=== PATIENT | female | born 1955 | race African-American/Black ===

== ENCOUNTER 2017-01-20 10:11 | Emergency (ER) | payer MEDICAID ==
[~2017-01-20] VITALS: Ht 170.2 cm; Wt 103.0 kg
[~2017-01-20 10:11] MED LIST: ATENOLOL; DOXA4TAB3 PO; FURO40TA5 PO; HYDR25TA PO; LOSA100T14 PO; METF500T4 PO; POTA8TAB4 PO; SIMV40TA5 PO
[2017-01-20 10:46] LABS: BASOPHILS % 0.9 % (0.0-2.0); EOSINOPHILS % 4.2 % (0.0-5.0); HEMATOCRIT. 30.8 % (36.0-48.0); HEMOGLOBIN. 9.8 g/dL (12.0-16.0); LYMPHOCYTES % 19.5 % (20.0-50.0); MEAN CORPUSCULAR HEMOGLOBIN 22.3 pg (28.0-32.0); MEAN CORPUSCULAR VOLUME 70.5 fL (81.0-99.0); MEAN PLATELET VOLUME 8.1 fl (7.4-10.4); MONOCYTES % 6.8 % (2.0-8.0); NEUTROPHILS % 68.6 % (40.0-76.0); PLATELET 250 x1000/uL (130-400); RED BLOOD CELL COUNT 4.37 mill/uL (4.2-5.4); RED CELL DISTRIBUTION WIDTH 14.3 % (11.6-14.6)
[2017-01-20 10:47] VITALS: BP 119/74
[2017-01-20 10:54] LABS: CHLORIDE 97 mEq/L (98-107); INR 1.1; PROTHROMBIN TIME 11.1 sec
[2017-01-20 11:03] LABS: CARBON DIOXIDE 31 mEq/L (21-32)
== END 2017-01-20 12:38 | disposition home or self-care (01) ==
LOC: ER 10:36
DX: R60.0 Localized edema (principal); I11.0 Hypertensive heart disease with heart failure; I50.9 Heart failure, unspecified; E78.00 Pure hypercholesterolemia, unspecified; E11.9 Type 2 diabetes mellitus without complications
CPT/HCPCS: 36415; 71010; 80053; 83880; 85025; 85610; 93005; 93970; 99285; Z7610

== ENCOUNTER 2018-08-01 11:27 | Emergency (ER) | payer MEDICAID ==
[~2018-08-01] VITALS: Ht 170.2 cm; Wt 100.0 kg
[~2018-08-01 11:27] MED LIST changes: +ALBU6.7H INH; +ATEN50TA PO; -ATENOLOL; +FLUT1DIS3 IH; +METF-414 PO; -METF500T4 PO; +P50 PO
[2018-08-01 11:28] VITALS: BP 136/75
== END 2018-08-01 15:30 | disposition left against medical advice (07) ==
LOC: ER 11:27
DX: R68.89 Other general symptoms and signs (principal); Z53.21 Procedure and treatment not carried out due to patient leaving prior to being seen by health care provider

== ENCOUNTER 2019-06-11 23:59 | Emergency (ER) | payer MEDICAID ==
[~2019-06-11] VITALS: Ht 167.6 cm; Wt 112.0 kg
[~2019-06-11 23:59] MED LIST changes: -LOSA100T14 PO; +LOSA100T32 PO
[2019-06-12] MEDS ORDERED: ONDANSETRON 4MG ODT PO STA (00:31)
[2019-06-12] MEDS ORDERED: KETOROLAC 60MG/2ML VIAL IM STA (00:31)
[2019-06-12 00:50] LABS: BASOPHILS % 0.7 % (0.0-2.0); EOSINOPHILS % 0.5 % (0.0-5.0); HEMATOCRIT. 35.4 % (36.0-48.0); HEMOGLOBIN. 10.7 g/dL (12.0-16.0); LYMPHOCYTES % 8.4 % (20.0-50.0); MEAN CORPUSCULAR HEMOGLOBIN 22.1 pg (28.0-32.0); MEAN CORPUSCULAR VOLUME 72.9 fL (81.0-99.0); MEAN PLATELET VOLUME 8.4 fl (7.4-10.4); MONOCYTES % 3.1 % (2.0-8.0); NEUTROPHILS % 87.3 % (40.0-76.0); PLATELET 288 x1000/uL (130-400); RED BLOOD CELL COUNT 4.85 mill/uL (4.2-5.4); RED CELL DISTRIBUTION WIDTH 14.4 % (11.6-14.6)
[2019-06-12 00:55] LABS: CHLORIDE 100 mEq/L (98-107)
[2019-06-12 00:59] LABS: ETHANOL BLOOD < 10 mg/dL
[2019-06-12 03:31] LABS: CLARITY URINE CLEAR (CLEAR); COLOR URINE DARK YELLOW (YELLOW); KETONES URINE NEGATIVE (NEGATIVE); LEUKOCYTE ESTERASE URINE 1+ (NEGATIVE); NITRITE URINE NEGATIVE (NEGATIVE); OCCULT BLOOD URINE TRACE (NEGATIVE); PH URINE 6.5 (4.5-8.0); PROTEIN URINE 1+ (NEGATIVE); SPECIFIC GRAVITY URINE 1.033 (1.005-1.030)
[2019-06-12 03:38] LABS: *AMPHETAMINES SCREEN URINE NEGATIVE (NEGATIVE); *BARBITURATES SCREEN URINE NEGATIVE (NEGATIVE); *BENZODIAZEPINES SCREEN URINE NEGATIVE (NEGATIVE); *COCAINE SCREEN URINE PRESUMTIVE POSITIVE (NEGATIVE); METHADONE URINE SCREEN NEGATIVE (NEGATIVE)
[2019-06-12 03:39] LABS: CANNABINOID URINE SCREEN NEGATIVE (NEGATIVE); OPIATES URINE SCREEN NEGATIVE (NEGATIVE); PHENCYCLIDINE URINE SCREEN NEGATIVE (NEGATIVE)
[2019-06-12 05:05] VITALS: BP 135/77
== END 2019-06-12 05:05 | disposition home or self-care (01) ==
LOC: ER 23:59
DX: R11.2 Nausea with vomiting, unspecified (principal); F14.10 Cocaine abuse, uncomplicated; E11.9 Type 2 diabetes mellitus without complications; I10 Essential (primary) hypertension; Z87.891 Personal history of nicotine dependence; Z79.899 Other long term (current) drug therapy
CPT/HCPCS: 36415; 80053; 80305; 80320; 81003; 83690; 85025; 96372; 99283; J1885; Q0162; G0480

== ENCOUNTER 2019-07-01 01:58 | Inpatient (IN) | payer MEDICAID ==
[~2019-07-01] VITALS: Ht 170.2 cm; Wt 102.1 kg
[~2019-07-01 01:58] MED LIST changes: -ALBU6.7H INH; +ALBU6.7H11 INH; +SIMV-46 PO; -SIMV40TA5 PO
[2019-07-01] MEDS ORDERED: ONDANSETRON HCL 4MG/2ML INJ IV STA (02:04)
[2019-07-01] MEDS ORDERED: ALBUTEROL (0.083%) 2.5MG/3ML NEB HHN STA (02:04)
[2019-07-01] MEDS ORDERED: IPRATROPIUM BROMIDE (0.02%) 0.5MG/2.5ML NEB HHN STA (02:04)
[2019-07-01 02:58] LABS: BG BASE EXCESS 2.5 mmol/L (-2.0-2.0); BG BILEVEL POS AIRWAY PRESSURE 15/5; BG CARBOXYHEMOGLOBIN 0.5 % (0.5-1.5); BG DEOXYHEMOGLOBIN 1.3 % (0.0-5.0); BG FRACTION INSPIRED OXYGEN 50; BG HCO3 ACT 26.6 mmol/L (22.0-26.0); BG METHEMOGLOBIN 0.3 % (0.0-1.5); BG OXYGEN SATURATION 98.7 % (92.0-98.5); BG OXYHEMOGLOBIN 97.9 % (94.0-97.0); BG PCO2 39.1 mmHg (35.0-45.0); BG PO2 139.5 mmHg (75.0-100.0); BG SAMPLE SITE RIGHT RADIAL; BG TOTAL HEMOGLOBIN 11.4 g/dL (12.0-18.0); BG VENT MODE MASK - BIPAP
[2019-07-01 03:28] LABS: BASOPHILS % 0.5 % (0.0-2.0); HEMATOCRIT. 36.1 % (36.0-48.0); HEMOGLOBIN. 11.1 g/dL (12.0-16.0); LYMPHOCYTES % 11.6 % (20.0-50.0); MEAN CORPUSCULAR VOLUME 71.4 fL (81.0-99.0); MEAN PLATELET VOLUME 9.1 fl (7.4-10.4); MONOCYTES % 7.1 % (2.0-8.0); NEUTROPHILS % 80.8 % (40.0-76.0); PLATELET 223 x1000/uL (130-400); RED BLOOD CELL COUNT 5.06 mill/uL (4.2-5.4); RED CELL DISTRIBUTION WIDTH 14.2 % (11.6-14.6)
[2019-07-01 03:49] LABS: CHLORIDE 102 mEq/L (98-107)
[2019-07-01] MEDS ORDERED: HYDROCODONE/ACETAMINOPHEN 5/325MG TABLET PO ONE (04:45)
[2019-07-01] MEDS ORDERED: ONDANSETRON HCL 4MG/2ML INJ IV PRN (08:15)
[2019-07-01] MEDS ORDERED: BENZONATATE 100MG CAPSULE PO PRN (08:15)
[2019-07-01] MEDS ORDERED: IPRATROPIUM/ALBUTEROL 0.5-3(2.5)MG/3ML NEB HHN PRN (08:15)
[2019-07-01] MEDS ORDERED: ACETAMINOPHEN 325MG TABLET PO PRN (08:15)
[2019-07-01] MEDS: OSELTAMIVIR 75MG CAPSULE PO SCH ×2 (09:10→21:31)
[2019-07-01] MEDS: IPRATROPIUM/ALBUTEROL 0.5-3(2.5)MG/3ML NEB HHN SCH ×3 (11:56→20:41)
[2019-07-01] MEDS: BUDESONIDE 0.5MG/2ML NEB HHN SCH ×2 (11:56→20:41)
[2019-07-01 15:23] VITALS: BP 114/60
[2019-07-01 15:25] VITALS: BP 114/60
[2019-07-01 16:00] VITALS: BP 110/50
[2019-07-01 20:00] VITALS: BP 100/48
[2019-07-01] MEDS: GUAIFENESIN 600MG ER TABLET PO SCH (21:31)
[2019-07-02] VITALS: BP 93/52
[2019-07-02] MEDS: IPRATROPIUM/ALBUTEROL 0.5-3(2.5)MG/3ML NEB HHN SCH ×4 (00:42→16:00)
[2019-07-02 04:00] VITALS: BP 102/54
[2019-07-02 04:55] LABS: CLARITY URINE CLEAR (CLEAR); COLOR URINE YELLOW (YELLOW); KETONES URINE NEGATIVE (NEGATIVE); LEUKOCYTE ESTERASE URINE 1+ (NEGATIVE); NITRITE URINE NEGATIVE (NEGATIVE); OCCULT BLOOD URINE NEGATIVE (NEGATIVE); PROTEIN URINE 1+ (NEGATIVE); SPECIFIC GRAVITY URINE 1.018 (1.005-1.030); UROBILINOGEN URINE 0.2 E.U./dL (0.2-1.0)
[2019-07-02 05:18] LABS: *AMPHETAMINES SCREEN URINE NEGATIVE (NEGATIVE); *BARBITURATES SCREEN URINE NEGATIVE (NEGATIVE); *BENZODIAZEPINES SCREEN URINE NEGATIVE (NEGATIVE)
[2019-07-02 05:19] LABS: *COCAINE SCREEN URINE PRESUMTIVE POSITIVE (NEGATIVE); CANNABINOID URINE SCREEN NEGATIVE (NEGATIVE); METHADONE URINE SCREEN NEGATIVE (NEGATIVE); OPIATES URINE SCREEN NEGATIVE (NEGATIVE); PHENCYCLIDINE URINE SCREEN NEGATIVE (NEGATIVE)
[2019-07-02 07:25] LABS: BASOPHILS % 0.3 % (0.0-2.0); HEMATOCRIT. 28.7 % (36.0-48.0); HEMOGLOBIN. 8.9 g/dL (12.0-16.0); LYMPHOCYTES % 17.3 % (20.0-50.0); MEAN CORPUSCULAR HEMOGLOBIN 22.3 pg (28.0-32.0); MEAN CORPUSCULAR VOLUME 71.8 fL (81.0-99.0); MEAN PLATELET VOLUME 8.9 fl (7.4-10.4); MONOCYTES % 12.5 % (2.0-8.0); NEUTROPHILS % 69.9 % (40.0-76.0); PLATELET 171 x1000/uL (130-400); RED CELL DISTRIBUTION WIDTH 14.1 % (11.6-14.6)
[2019-07-02 07:35] LABS: CHLORIDE 102 mEq/L (98-107)
[2019-07-02 08:00] VITALS: BP 110/61
[2019-07-02] MEDS: GUAIFENESIN 600MG ER TABLET PO SCH (10:08)
[2019-07-02] MEDS: OSELTAMIVIR 75MG CAPSULE PO SCH (10:08)
[2019-07-02 12:00] VITALS: BP 121/60
[2019-07-02] MEDS ORDERED: POTASSIUM CHLORIDE 20MEQ TABLET SR PO SCH (13:15)
[2019-07-02] MEDS ORDERED: ALBU18HF2 IH (13:41)
[2019-07-02] MEDS ORDERED: BENZ-16 MT (13:41)
[2019-07-02] MEDS ORDERED: FLUT1DIS3 INH (13:41)
[2019-07-02] MEDS ORDERED: GUAI600T26 MT (13:41)
[2019-07-02] MEDS ORDERED: TAM75 MT (13:41)
[2019-07-02] MEDS: BUDESONIDE 0.5MG/2ML NEB HHN SCH (14:25)
[2019-07-02 14:31] LABS: BG BASE EXCESS 6.9 mmol/L (-2.0-2.0); BG CARBOXYHEMOGLOBIN 0.7 % (0.5-1.5); BG DEOXYHEMOGLOBIN 23.1 % (0.0-5.0); BG FRACTION INSPIRED OXYGEN 21; BG HCO3 ACT 32.4 mmol/L (22.0-26.0); BG METHEMOGLOBIN 0.1 % (0.0-1.5); BG OXYGEN SATURATION 76.7 % (92.0-98.5); BG OXYHEMOGLOBIN 76.1 % (94.0-97.0); BG PCO2 50.6 mmHg (35.0-45.0); BG PH 7.424 (7.350-7.450); BG PO2 39.8 mmHg (75.0-100.0); BG SAMPLE SITE RIGHT BRACHIAL; BG TOTAL HEMOGLOBIN 10.4 g/dL (12.0-18.0); BG VENT MODE ROOM AIR
[2019-07-02 16:00] VITALS: BP 105/53
[2019-07-02 18:59] VITALS: BP 105/53
== END 2019-07-02 20:30 | disposition home or self-care (01) | DRG 720 ==
LOC: ER 01:58 → 7WST 04:49 → ENRESERV 12:22
PROVIDERS: ADMIT Internal Medicine; ATTEND Internal Medicine
PROC: 5A09357 Assistance with Respiratory Ventilation, Less than 24 Consecutive Hours, Continuous Positive Airway Pressure (ICD-10-PCS; principal; 2019-07-01)
DX: A41.89 Other specified sepsis (principal); J96.00 Acute respiratory failure, unspecified whether with hypoxia or hypercapnia; J44.1 Chronic obstructive pulmonary disease with (acute) exacerbation; J10.1 Influenza due to other identified influenza virus with other respiratory manifestations; E44.1 Mild protein-calorie malnutrition; E11.9 Type 2 diabetes mellitus without complications; I50.9 Heart failure, unspecified; I11.0 Hypertensive heart disease with heart failure; F14.90 Cocaine use, unspecified, uncomplicated; Z87.891 Personal history of nicotine dependence; Z79.899 Other long term (current) drug therapy; Z71.51 Drug abuse counseling and surveillance of drug abuser; Z68.35 Body mass index [BMI] 35.0-35.9, adult
CPT/HCPCS: 36415; 36600; 71045; 80048; 80053; 80305; 81003; 82375; 82805; 83880; 84484; 85025; 87070; 87430; 87804; 93005; 94640; 97162; 99291; J7611; J7620; J7626

== ENCOUNTER 2020-02-22 00:42 | Emergency (ER) | payer MEDICARE, MEDICAID ==
[~2020-02-22] VITALS: Ht 170.2 cm; Wt 114.0 kg
[~2020-02-22 00:42] MED LIST changes: +ALBU18HF2 IH; -ATEN50TA PO; +BENZ-16 MT; +FLUT1DIS3 INH; -FURO40TA5 PO; +GUAI600T26 MT; -HYDR25TA PO; -LOSA100T32 PO; -METF-414 PO; -P50 PO; -POTA8TAB4 PO; +TAM75 MT
[2020-02-22 03:20] LABS: BASOPHILS % 0.8 % (0.0-2.0); EOSINOPHILS % 1.9 % (0.0-5.0); HEMATOCRIT. 30.9 % (36.0-48.0); HEMOGLOBIN. 9.6 g/dL (12.0-16.0); LYMPHOCYTES % 9.4 % (20.0-50.0); MEAN CORPUSCULAR HEMOGLOBIN 22.1 pg (28.0-32.0); MEAN CORPUSCULAR VOLUME 71.4 fL (81.0-99.0); MEAN PLATELET VOLUME 8.1 fl (7.4-10.4); NEUTROPHILS % 83.9 % (40.0-76.0); PLATELET 325 x1000/uL (130-400); RED BLOOD CELL COUNT 4.33 mill/uL (4.2-5.4); RED CELL DISTRIBUTION WIDTH 15.4 % (11.6-14.6)
[2020-02-22 03:25] LABS: CHLORIDE 104 mEq/L (98-107)
[2020-02-22 06:04] VITALS: BP 114/67
== END 2020-02-22 06:10 | disposition home or self-care (01) ==
LOC: ER 00:42
DX: I11.0 Hypertensive heart disease with heart failure (principal); I50.9 Heart failure, unspecified; E78.00 Pure hypercholesterolemia, unspecified; E11.9 Type 2 diabetes mellitus without complications; Z79.899 Other long term (current) drug therapy
CPT/HCPCS: 36415; 71045; 80053; 83880; 84484; 85025; 93005; 99285

== ENCOUNTER 2020-05-04 04:11 | Inpatient (IN) | payer MEDICARE, MEDICAID ==
[~2020-05-04] VITALS: Ht 170.2 cm; Wt 93.9 kg
[2020-05-04] MEDS ORDERED: DIPHENHYDRAMINE 50MG CAPSULE PO ONE (04:30)
[2020-05-04 04:54] LABS: BASOPHILS % 1.4 % (0.0-2.0); EOSINOPHILS % 5.7 % (0.0-5.0); HEMATOCRIT. 28.3 % (36.0-48.0); HEMOGLOBIN. 8.6 g/dL (12.0-16.0); LYMPHOCYTES % 15.5 % (20.0-50.0); MEAN CORPUSCULAR HEMOGLOBIN 22.7 pg (28.0-32.0); MEAN CORPUSCULAR VOLUME 74.3 fL (81.0-99.0); MEAN PLATELET VOLUME 7.7 fl (7.4-10.4); MONOCYTES % 8.3 % (2.0-8.0); NEUTROPHILS % 69.1 % (40.0-76.0); PLATELET 479 x1000/uL (130-400); RED BLOOD CELL COUNT 3.81 mill/uL (4.2-5.4); RED CELL DISTRIBUTION WIDTH 18.9 % (11.6-14.6)
[2020-05-04 05:02] LABS: CHLORIDE 102 mEq/L (98-107)
[2020-05-04] MEDS ORDERED: ASPIRIN 81MG TABLET PO ONE (05:45)
[2020-05-04] MEDS ORDERED: FUROSEMIDE 40MG/4ML VIAL IV ONE (05:45)
[2020-05-04] MEDS ORDERED: ALBUTEROL (0.083%) 2.5MG/3ML NEB HHN STA (05:58)
[2020-05-04] MEDS ORDERED: METHYLPREDNISOLONE SOD SUCC 125 MG/2 ML VIAL IV STA (05:58)
[2020-05-04 08:21] VITALS: BP 140/78
[2020-05-04] MEDS ORDERED: ENOXAPARIN 40MG/0.4ML SYR SUBCUT SCH (09:45)
[2020-05-04] MEDS ORDERED: ONDANSETRON HCL 4MG/2ML INJ IV PRN (09:45)
[2020-05-04] MEDS ORDERED: IPRATROPIUM/ALBUTEROL 0.5-3(2.5)MG/3ML NEB HHN PRN (09:45)
[2020-05-04] MEDS ORDERED: ASPIRIN 325MG EC TABLET PO SCH (09:45)
[2020-05-04] MEDS ORDERED: DEXTROSE 50% WATER 50ML SYRINGE IV PRN (09:45)
[2020-05-04] MEDS ORDERED: POTASSIUM CHLORIDE 20MEQ/PACKET PO SCH (10:00)
[2020-05-04] MEDS: CARVEDILOL 3.125 MG TABLET PO SCH ×2 (11:04→20:27)
[2020-05-04] MEDS: ENOXAPARIN 30MG/0.3ML SYR SUBCUT SCH ×2 (11:04→20:27)
[2020-05-04] MEDS: LISINOPRIL 20MG TABLET PO SCH (11:04)
[2020-05-04 12:00] VITALS: BP 117/47
[2020-05-04] MEDS: BLOOD SUGAR DIAGNOSTIC STRIP TEST SCH ×3 (12:10→20:28)
[2020-05-04] MEDS: INSULIN LISPRO 100 UNITS/ML SUBCUT SCH ×3 (12:40→21:14)
[2020-05-04 16:00] VITALS: BP 100/50
[2020-05-04 17:04] LABS: TOTAL IRON BINDING CAPACITY 223 ug/dL (250-450)
[2020-05-04] MEDS: FUROSEMIDE 40MG/4ML VIAL IVP SCH (18:00)
[2020-05-04 20:00] VITALS: BP 125/72
[2020-05-04] MEDS: ATORVASTATIN CALCIUM 40MG TABLET PO SCH (20:27)
[2020-05-04] MEDS: FAMOTIDINE 20MG TABLET PO SCH (20:27)
[2020-05-04] MEDS: TRAMADOL 50MG TABLET PO PRN (20:28)
[2020-05-04] MEDS: DIPHENHYDRAMINE 50MG CAPSULE PO PRN (21:50)
[2020-05-05] VITALS: BP 113/66
[2020-05-05 04:00] VITALS: BP 108/60
[2020-05-05] MEDS: FUROSEMIDE 40MG/4ML VIAL IVP SCH ×2 (05:21→20:51)
[2020-05-05] MEDS: BLOOD SUGAR DIAGNOSTIC STRIP TEST SCH ×4 (05:26→21:05)
[2020-05-05] MEDS: INSULIN LISPRO 100 UNITS/ML SUBCUT SCH ×4 (05:46→21:00)
[2020-05-05 06:35] LABS: BASOPHILS % 0.3 % (0.0-2.0); EOSINOPHILS % 0.1 % (0.0-5.0); HEMOGLOBIN. 7.3 g/dL (12.0-16.0); LYMPHOCYTES % 7.6 % (20.0-50.0); MEAN CORPUSCULAR HEMOGLOBIN 22.2 pg (28.0-32.0); MEAN CORPUSCULAR VOLUME 75.8 fL (81.0-99.0); MONOCYTES % 5.3 % (2.0-8.0); NEUTROPHILS % 86.7 % (40.0-76.0); RED CELL DISTRIBUTION WIDTH 18.4 % (11.6-14.6)
[2020-05-05 07:45] LABS: CHLORIDE 102 mEq/L (98-107)
[2020-05-05 07:59] LABS: PLATELET 392 x1000/uL (130-400)
[2020-05-05 08:00] VITALS: BP 110/57
[2020-05-05] MEDS: CARVEDILOL 3.125 MG TABLET PO SCH ×2 (09:00→20:53)
[2020-05-05] MEDS: LISINOPRIL 20MG TABLET PO SCH (09:00)
[2020-05-05] MEDS: ENOXAPARIN 30MG/0.3ML SYR SUBCUT SCH (09:00)
[2020-05-05 10:16] LABS: PLATELET ESTIMATE NORMAL
[2020-05-05] MEDS: DOCUSATE SODIUM 100MG CAPSULE PO SCH ×2 (11:20→19:06)
[2020-05-05 12:00] VITALS: BP 107/56
[2020-05-05] MEDS ORDERED: FERROUS SULFATE 325MG TABLET PO SCH (12:40)
[2020-05-05] MEDS: DIPHENHYDRAMINE 50MG CAPSULE PO PRN ×2 (13:45→20:52)
[2020-05-05] MEDS ORDERED: MAGNESIUM CITRATE 300ML SOLUTION PO SCH ×2 (15:00)
[2020-05-05 20:00] VITALS: BP 106/61
[2020-05-05] MEDS: IRON SUCROSE COMPLEX 100 MG/5 ML ML IV SCH (20:52)
[2020-05-05] MEDS: ATORVASTATIN CALCIUM 40MG TABLET PO SCH (20:52)
[2020-05-05] MEDS: FAMOTIDINE 20MG TABLET PO SCH (20:53)
[2020-05-06] VITALS (8 sets, daily range): BP systolic 97–122; BP diastolic 51–74
[2020-05-06] MEDS ORDERED: ZOLPIDEM TARTRATE 5MG TABLET PO PRN (01:00)
[2020-05-06] MEDS: BLOOD SUGAR DIAGNOSTIC STRIP TEST SCH ×4 (06:56→21:26)
[2020-05-06] MEDS: INSULIN LISPRO 100 UNITS/ML SUBCUT SCH ×4 (06:56→21:00)
[2020-05-06] MEDS: FUROSEMIDE 40MG/4ML VIAL IVP SCH ×2 (06:57→17:07)
[2020-05-06 08:34] LABS: BASOPHILS % 0.6 % (0.0-2.0); EOSINOPHILS % 6.2 % (0.0-5.0); HEMOGLOBIN. 7.4 g/dL (12.0-16.0); LYMPHOCYTES % 18.2 % (20.0-50.0); MEAN CORPUSCULAR HEMOGLOBIN 22.8 pg (28.0-32.0); MEAN CORPUSCULAR VOLUME 73.9 fL (81.0-99.0); MEAN PLATELET VOLUME 8.1 fl (7.4-10.4); MONOCYTES % 6.3 % (2.0-8.0); NEUTROPHILS % 68.7 % (40.0-76.0); PLATELET 417 x1000/uL (130-400); RED BLOOD CELL COUNT 3.25 mill/uL (4.2-5.4); RED CELL DISTRIBUTION WIDTH 17.8 % (11.6-14.6)
[2020-05-06 08:50] LABS: CHLORIDE 99 mEq/L (98-107)
[2020-05-06] MEDS: CARVEDILOL 3.125 MG TABLET PO SCH ×2 (09:00→20:49)
[2020-05-06] MEDS: LISINOPRIL 20MG TABLET PO SCH (09:00)
[2020-05-06] MEDS: IRON SUCROSE COMPLEX 100 MG/5 ML ML IV SCH (09:11)
[2020-05-06] MEDS: DOCUSATE SODIUM 100MG CAPSULE PO SCH ×2 (09:11→17:07)
[2020-05-06 10:38] LABS: CLARITY URINE CLEAR (CLEAR); COLOR URINE YELLOW (YELLOW); KETONES URINE NEGATIVE (NEGATIVE); LEUKOCYTE ESTERASE URINE NEGATIVE (NEGATIVE); NITRITE URINE NEGATIVE (NEGATIVE); OCCULT BLOOD URINE NEGATIVE (NEGATIVE); PH URINE 5.5 (4.5-8.0); PROTEIN URINE NEGATIVE (NEGATIVE); UROBILINOGEN URINE 0.2 E.U./dL (0.2-1.0)
[2020-05-06] MEDS ORDERED: POTASSIUM CHLORIDE 20MEQ TABLET SR PO SCH (13:30)
[2020-05-06] MEDS: ATORVASTATIN CALCIUM 40MG TABLET PO SCH (20:49)
[2020-05-06] MEDS: FAMOTIDINE 20MG TABLET PO SCH (20:49)
[2020-05-06] MEDS: TRAMADOL 50MG TABLET PO PRN (21:20)
[2020-05-06] MEDS: MORPHINE SULFATE 2 MG/ML CPJ (NOT FOR IM USE) IV PRN (22:43)
[2020-05-06] MEDS: DIPHENHYDRAMINE 50MG CAPSULE PO PRN (23:41)
[2020-05-07] VITALS (9 sets, daily range): BP systolic 95–129; BP diastolic 53–78
[2020-05-07] MEDS: FUROSEMIDE 40MG/4ML VIAL IVP SCH ×2 (06:00→18:08)
[2020-05-07] MEDS: BLOOD SUGAR DIAGNOSTIC STRIP TEST SCH ×4 (06:42→21:00)
[2020-05-07] MEDS: INSULIN LISPRO 100 UNITS/ML SUBCUT SCH ×4 (06:43→21:00)
[2020-05-07 07:02] LABS: BASOPHILS % 0.6 % (0.0-2.0); EOSINOPHILS % 8.1 % (0.0-5.0); HEMATOCRIT. 27.7 % (36.0-48.0); HEMOGLOBIN. 8.4 g/dL (12.0-16.0); LYMPHOCYTES % 19.9 % (20.0-50.0); MEAN CORPUSCULAR HEMOGLOBIN 22.7 pg (28.0-32.0); MEAN CORPUSCULAR VOLUME 74.9 fL (81.0-99.0); MEAN PLATELET VOLUME 8.1 fl (7.4-10.4); MONOCYTES % 8.4 % (2.0-8.0); PLATELET 433 x1000/uL (130-400); RED CELL DISTRIBUTION WIDTH 17.8 % (11.6-14.6)
[2020-05-07 07:10] LABS: CHLORIDE 98 mEq/L (98-107)
[2020-05-07] MEDS: DOCUSATE SODIUM 100MG CAPSULE PO SCH ×2 (09:38→18:08)
[2020-05-07] MEDS: IRON SUCROSE COMPLEX 100 MG/5 ML ML IV SCH (09:38)
[2020-05-07] MEDS: CARVEDILOL 3.125 MG TABLET PO SCH ×2 (09:40→20:51)
[2020-05-07] MEDS: LISINOPRIL 20MG TABLET PO SCH (09:42)
[2020-05-07] MEDS: FAMOTIDINE 20MG TABLET PO SCH (20:51)
[2020-05-07] MEDS: ATORVASTATIN CALCIUM 40MG TABLET PO SCH (20:51)
[2020-05-07] MEDS: MORPHINE SULFATE 2 MG/ML CPJ (NOT FOR IM USE) IV PRN (20:53)
[2020-05-08] VITALS: BP 115/60
[2020-05-08] MEDS: DIPHENHYDRAMINE 50MG CAPSULE PO PRN (01:04)
[2020-05-08 04:00] VITALS: BP 104/55
[2020-05-08] MEDS: BLOOD SUGAR DIAGNOSTIC STRIP TEST SCH (06:51)
[2020-05-08] MEDS: FUROSEMIDE 40MG/4ML VIAL IVP SCH (06:51)
[2020-05-08] MEDS: INSULIN LISPRO 100 UNITS/ML SUBCUT SCH (06:51)
[2020-05-08 08:00] VITALS: BP 115/63
[2020-05-08] MEDS ORDERED: CELECOXIB 200MG CAPSULE PO SCH (09:00)
[2020-05-08] MEDS: LISINOPRIL 20MG TABLET PO SCH (10:23)
[2020-05-08] MEDS: CARVEDILOL 3.125 MG TABLET PO SCH (10:23)
[2020-05-08] MEDS: DOCUSATE SODIUM 100MG CAPSULE PO SCH (10:23)
[2020-05-08 10:56] VITALS: BP 115/63
[2020-05-08 12:00] VITALS: BP 141/82
[2020-05-09] MEDS ORDERED: ATEN50TA MT (08:49)
[2020-05-09] MEDS ORDERED: FURO-151 MT (08:49)
[2020-05-09] MEDS ORDERED: POTASSIUM (08:49)
[2020-05-09 15:10] LABS: ANTI-DNA DOUBLE STRANDED QUANT 22 IU/mL (0-9); RNP ANTIBODY 0.2 AI (0.0-0.9); SMITH ANTIBODY < 0.2 AI (0.0-0.9)
[2020-05-10 17:06] LABS: ALDOLASE 1.9 U/L (3.3-10.3); ANGIOTENSION CONVERTING ENZYME 8 U/L (14-82)
[2020-05-10 19:10] LABS: CYC CITRULLINATED PEP IgG/IgA 117 units (0-19)
[2020-05-11 17:10] LABS: ANTI-MYELOPEROXIDASE AB < 9.0 U/mL (0.0-9.0); ANTI-PROTEINASE 3 ABS 4.6 U/mL (0.0-3.5)
[2020-05-12 15:07] LABS: ANA IFA Negative (.); ATYPICAL P-ANCA <1:20 titer (Neg:<1:20); CYTOPLASMIC C-ANCA <1:20 titer (Neg:<1:20); PERINUCLEAR P-ANCA <1:20 titer (Neg:<1:20)
== END 2020-05-08 15:22 | DRG 291 ==
LOC: ER 04:11 → 8WST 06:17 → EDBEDREQTM 06:32 → EDBEDREQ 06:32 → ENRESERV 07:56 → 8WST 09:47
PROVIDERS: ADMIT Internal Medicine; ATTEND Internal Medicine
PROC: 0XJ Anatomical Regions, Upper Extremities, Inspection (ICD-10-PCS; principal; 2020-05-04)
PROC: 3E0U3BZ Introduction of Anesthetic Agent into Joints, Percutaneous Approach (ICD-10-PCS; 2020-05-04)
PROC: 30233N1 Transfusion of Nonautologous Red Blood Cells into Peripheral Vein, Percutaneous Approach (ICD-10-PCS; 2020-05-06)
PROC: 3E0U33Z Introduction of Anti-inflammatory into Joints, Percutaneous Approach (ICD-10-PCS; 2020-05-06)
DX: I11.0 Hypertensive heart disease with heart failure (principal); J96.21 Acute and chronic respiratory failure with hypoxia; E44.0 Moderate protein-calorie malnutrition; J44.1 Chronic obstructive pulmonary disease with (acute) exacerbation; I50.33 Acute on chronic diastolic (congestive) heart failure; E11.9 Type 2 diabetes mellitus without complications; E87.6 Hypokalemia; E78.5 Hyperlipidemia, unspecified; E66.9 Obesity, unspecified; D50.9 Iron deficiency anemia, unspecified; D72.829 Elevated white blood cell count, unspecified; E78.00 Pure hypercholesterolemia, unspecified; M75.52 Bursitis of left shoulder; M19.012 Primary osteoarthritis, left shoulder; X58.XXXA Exposure to other specified factors, initial encounter; M51.36 Other intervertebral disc degeneration, lumbar region; F14.11 Cocaine abuse, in remission; Z96.641 Presence of right artificial hip joint; R53.81 Other malaise; Z96.652 Presence of left artificial knee joint; M75.102 Unspecified rotator cuff tear or rupture of left shoulder, not specified as traumatic; Z99.81 Dependence on supplemental oxygen; Z82.49 Family history of ischemic heart disease and other diseases of the circulatory system; Z83.3 Family history of diabetes mellitus; Z87.891 Personal history of nicotine dependence; Z90.710 Acquired absence of both cervix and uterus; Z68.32 Body mass index [BMI] 32.0-32.9, adult; Z79.899 Other long term (current) drug therapy; Y93.89 Activity, other specified; Y92.89 Other specified places as the place of occurrence of the external cause; Y99.8 Other external cause status
CPT/HCPCS: 36415; 71045; 72141; 73030; 73221; 73502; 80048; 80053; 81003; 82085; 82164; 82270; 82728; 82962; 83036; 83520; 83540; 83550; 83880; 84484; 84550; 85025; 86200; 86225; 86235; 86256; 86431; 86850; 86900; 86920; 93005; 93306; 93970; 94640; 97116; 97162; 97166; 97530; 97535; 99285; C1893; J1650; J1815; J1940; J2270; J2930; P9016; Q0163

== ENCOUNTER 2020-05-08 15:25 | Inpatient (IN) | payer MEDICARE, MEDICAID ==
[~2020-05-08] VITALS: Ht 170.2 cm; Wt 99.8 kg
[2020-05-08 15:30] VITALS: BP 118/55
[2020-05-08] MEDS ORDERED: ENOXAPARIN 30MG/0.3ML SYR SUBCUT SCH (16:00)
[2020-05-08] MEDS ORDERED: DEXTROSE 50% WATER 50ML SYRINGE IV PRN (16:00)
[2020-05-08] MEDS ORDERED: ONDANSETRON HCL 4MG/2ML INJ IV PRN (16:00)
[2020-05-08] MEDS ORDERED: IPRATROPIUM/ALBUTEROL 0.5-3(2.5)MG/3ML NEB HHN PRN (16:00)
[2020-05-08] MEDS ORDERED: MORPHINE SULFATE 2 MG/ML CPJ (NOT FOR IM USE) IV PRN (16:00)
[2020-05-08] MEDS ORDERED: DIPHENHYDRAMINE 50MG CAPSULE PO PRN (16:00)
[2020-05-08] MEDS: INSULIN LISPRO 100 UNITS/ML SUBCUT SCH ×2 (17:00→21:00)
[2020-05-08] MEDS: BLOOD SUGAR DIAGNOSTIC STRIP TEST SCH ×2 (17:27→21:47)
[2020-05-08] MEDS: DOCUSATE SODIUM 100MG CAPSULE PO SCH (17:29)
[2020-05-08] MEDS: FUROSEMIDE 40MG TABLET PO SCH (17:29)
[2020-05-08] MEDS: CELECOXIB 200MG CAPSULE PO SCH (17:30)
[2020-05-08 17:45] VITALS: BP 118/55
[2020-05-08] MEDS ORDERED: FUROSEMIDE 40MG/4ML VIAL IVP SCH (18:00)
[2020-05-08 20:00] VITALS: BP 101/51
[2020-05-08] MEDS: CARVEDILOL 3.125 MG TABLET PO SCH (21:00)
[2020-05-08] MEDS: TRAMADOL 50MG TABLET PO PRN (21:45)
[2020-05-08] MEDS: ATORVASTATIN CALCIUM 40MG TABLET PO SCH (21:46)
[2020-05-08] MEDS: FAMOTIDINE 20MG TABLET PO SCH (21:46)
[2020-05-09] MEDS: FUROSEMIDE 40MG TABLET PO SCH ×2 (06:22→17:11)
[2020-05-09] MEDS: TRAMADOL 50MG TABLET PO PRN ×2 (06:26→20:19)
[2020-05-09] MEDS: BLOOD SUGAR DIAGNOSTIC STRIP TEST SCH (06:26)
[2020-05-09 07:22] LABS: BASOPHILS % 0.9 % (0.0-2.0); EOSINOPHILS % 3.8 % (0.0-5.0); HEMATOCRIT. 26.1 % (36.0-48.0); HEMOGLOBIN. 8.1 g/dL (12.0-16.0); LYMPHOCYTES % 13.3 % (20.0-50.0); MEAN CORPUSCULAR HEMOGLOBIN 23.1 pg (28.0-32.0); MEAN CORPUSCULAR VOLUME 74.7 fL (81.0-99.0); MEAN PLATELET VOLUME 8.1 fl (7.4-10.4); MONOCYTES % 6.4 % (2.0-8.0); NEUTROPHILS % 75.6 % (40.0-76.0); PLATELET 387 x1000/uL (130-400); RED BLOOD CELL COUNT 3.49 mill/uL (4.2-5.4); RED CELL DISTRIBUTION WIDTH 18.4 % (11.6-14.6)
[2020-05-09 07:29] LABS: CHLORIDE 100 mEq/L (98-107)
[2020-05-09 08:02] VITALS: BP 112/61
[2020-05-09] MEDS ORDERED: POTASSIUM (08:49)
[2020-05-09] MEDS ORDERED: ATEN50TA MT (08:49)
[2020-05-09] MEDS ORDERED: FURO-151 MT (08:49)
[2020-05-09] MEDS: INSULIN LISPRO 100 UNITS/ML SUBCUT SCH (09:00)
[2020-05-09] MEDS: DOCUSATE SODIUM 100MG CAPSULE PO SCH ×3 (09:44→17:11)
[2020-05-09] MEDS: CARVEDILOL 3.125 MG TABLET PO SCH ×2 (09:44→20:19)
[2020-05-09] MEDS: CELECOXIB 200MG CAPSULE PO SCH ×2 (09:44→17:11)
[2020-05-09] MEDS: LISINOPRIL 20MG TABLET PO SCH (09:45)
[2020-05-09] MEDS ORDERED: POTASSIUM CHLORIDE 20MEQ TABLET SR PO NR (10:00)
[2020-05-09] MEDS ORDERED: ONDANSETRON HCL 4MG TABLET PO PRN (10:00)
[2020-05-09 20:00] VITALS: BP 135/74
[2020-05-09] MEDS: FAMOTIDINE 20MG TABLET PO SCH (20:18)
[2020-05-09] MEDS: ATORVASTATIN CALCIUM 40MG TABLET PO SCH (20:18)
[2020-05-09 20:29] LABS: CLARITY URINE CLEAR (CLEAR); COLOR URINE YELLOW (YELLOW); KETONES URINE NEGATIVE (NEGATIVE); LEUKOCYTE ESTERASE URINE TRACE (NEGATIVE); NITRITE URINE NEGATIVE (NEGATIVE); OCCULT BLOOD URINE NEGATIVE (NEGATIVE); PH URINE 5.5 (4.5-8.0); PROTEIN URINE NEGATIVE (NEGATIVE); SPECIFIC GRAVITY URINE 1.024 (1.005-1.030)
[2020-05-09] MEDS: ZOLPIDEM TARTRATE 5MG TABLET PO PRN (23:57)
[2020-05-10] MEDS: TRAMADOL 50MG TABLET PO PRN ×2 (02:42→21:13)
[2020-05-10 05:54] LABS: BASOPHILS % 0.7 % (0.0-2.0); EOSINOPHILS % 3.5 % (0.0-5.0); HEMATOCRIT. 26.4 % (36.0-48.0); HEMOGLOBIN. 8.2 g/dL (12.0-16.0); LYMPHOCYTES % 12.7 % (20.0-50.0); MEAN CORPUSCULAR VOLUME 74.3 fL (81.0-99.0); MEAN PLATELET VOLUME 8.2 fl (7.4-10.4); MONOCYTES % 8.3 % (2.0-8.0); NEUTROPHILS % 74.8 % (40.0-76.0); PLATELET 379 x1000/uL (130-400); RED BLOOD CELL COUNT 3.56 mill/uL (4.2-5.4); RED CELL DISTRIBUTION WIDTH 18.5 % (11.6-14.6)
[2020-05-10] MEDS: FUROSEMIDE 40MG TABLET PO SCH ×2 (06:16→16:26)
[2020-05-10 06:32] LABS: FOLIC ACID (FOLATE) SERUM 5.7 ng/mL (>5.38)
[2020-05-10 07:54] LABS: CHLORIDE 98 mEq/L (98-107)
[2020-05-10 08:00] VITALS: BP 125/62
[2020-05-10 08:03] LABS: TOTAL IRON BINDING CAPACITY 244 ug/dL (250-450)
[2020-05-10 08:04] LABS: PHOSPHORUS 3.1 mg/dL (2.5-4.9)
[2020-05-10] MEDS: DOCUSATE SODIUM 100MG CAPSULE PO SCH ×2 (08:21→16:26)
[2020-05-10] MEDS: CELECOXIB 200MG CAPSULE PO SCH ×2 (08:21→16:26)
[2020-05-10 08:30] VITALS: BP_SYST 104; BP_DIAS 4; BP_DIAS 64
[2020-05-10] MEDS: CARVEDILOL 3.125 MG TABLET PO SCH ×3 (08:33→21:14)
[2020-05-10] MEDS: LISINOPRIL 20MG TABLET PO SCH (08:35)
[2020-05-10 10:32] VITALS: BP 121/77
[2020-05-10] MEDS: CYANOCOBALAMIN 1000MCG/ML VIAL IM SCH (11:32)
[2020-05-10 11:36] LABS: BG BASE EXCESS 14.9 mmol/L (-2.0-2.0); BG CARBOXYHEMOGLOBIN 0.3 % (0.5-1.5); BG DEOXYHEMOGLOBIN 2.9 % (0.0-5.0); BG FRACTION INSPIRED OXYGEN 28; BG METHEMOGLOBIN 0.2 % (0.0-1.5); BG OXYGEN SATURATION 97.1 % (92.0-98.5); BG OXYHEMOGLOBIN 96.6 % (94.0-97.0); BG PCO2 69.9 mmHg (35.0-45.0); BG PH 7.397 (7.350-7.450); BG PO2 91.1 mmHg (75.0-100.0); BG TOTAL HEMOGLOBIN 9.6 g/dL (12.0-18.0); BG VENT MODE NASAL CANNULA
[2020-05-10 16:14] LABS: BG CARBOXYHEMOGLOBIN 0.3 % (0.5-1.5); BG DEOXYHEMOGLOBIN 4.7 % (0.0-5.0); BG FRACTION INSPIRED OXYGEN 24; BG HCO3 ACT 36.9 mmol/L (22.0-26.0); BG METHEMOGLOBIN 0.4 % (0.0-1.5); BG OXYGEN SATURATION 95.3 % (92.0-98.5); BG OXYHEMOGLOBIN 94.6 % (94.0-97.0); BG PCO2 57.2 mmHg (35.0-45.0); BG PH 7.428 (7.350-7.450); BG PO2 77.1 mmHg (75.0-100.0); BG SAMPLE SITE RIGHT RADIAL; BG TOTAL HEMOGLOBIN 9.5 g/dL (12.0-18.0); BG VENT MODE NASAL CANNULA
[2020-05-10 20:00] VITALS: BP 140/75
[2020-05-10] MEDS: BUDESONIDE 0.5MG/2ML NEB HHN SCH (21:06)
[2020-05-10] MEDS: IPRATROPIUM/ALBUTEROL 0.5-3(2.5)MG/3ML NEB HHN SCH (21:07)
[2020-05-10] MEDS: ATORVASTATIN CALCIUM 40MG TABLET PO SCH (21:13)
[2020-05-10] MEDS: FAMOTIDINE 20MG TABLET PO SCH (21:13)
[2020-05-11] MEDS: FUROSEMIDE 40MG TABLET PO SCH ×2 (06:23→16:42)
[2020-05-11 08:00] VITALS: BP 124/77
[2020-05-11 08:04] LABS: BASOPHILS % 1.3 % (0.0-2.0); EOSINOPHILS % 3.5 % (0.0-5.0); HEMATOCRIT. 26.2 % (36.0-48.0); HEMOGLOBIN. 8.2 g/dL (12.0-16.0); MEAN CORPUSCULAR HEMOGLOBIN 23.3 pg (28.0-32.0); MEAN CORPUSCULAR VOLUME 74.9 fL (81.0-99.0); MEAN PLATELET VOLUME 8.5 fl (7.4-10.4); MONOCYTES % 7.7 % (2.0-8.0); NEUTROPHILS % 71.5 % (40.0-76.0); PLATELET 379 x1000/uL (130-400); RED CELL DISTRIBUTION WIDTH 18.8 % (11.6-14.6)
[2020-05-11 08:31] VITALS: BP 124/77
[2020-05-11 08:43] LABS: CHLORIDE 99 mEq/L (98-107)
[2020-05-11] MEDS: BUDESONIDE 0.5MG/2ML NEB HHN SCH ×2 (08:46→20:36)
[2020-05-11] MEDS: IPRATROPIUM/ALBUTEROL 0.5-3(2.5)MG/3ML NEB HHN SCH ×4 (08:49→20:36)
[2020-05-11] MEDS ORDERED: TUBERCULIN,PURIF.PROT.DERIV. 5 TU/0.1 ML SYR ID ONE (09:00)
[2020-05-11] MEDS: DOCUSATE SODIUM 100MG CAPSULE PO SCH ×2 (09:00→16:45)
[2020-05-11] MEDS: LISINOPRIL 20MG TABLET PO SCH (09:41)
[2020-05-11] MEDS: HYDROXYCHLOROQUINE SULFATE 200MG TABLET PO SCH ×2 (09:41→16:42)
[2020-05-11] MEDS: CARVEDILOL 3.125 MG TABLET PO SCH ×2 (09:42→20:58)
[2020-05-11] MEDS: FOLIC ACID 1MG TABLET PO SCH (09:42)
[2020-05-11] MEDS: CELECOXIB 200MG CAPSULE PO SCH ×2 (09:42→16:42)
[2020-05-11] MEDS: CYANOCOBALAMIN 1000MCG/ML VIAL IM SCH (09:42)
[2020-05-11] MEDS: PREDNISONE 10MG TABLET PO SCH (13:29)
[2020-05-11 20:00] VITALS: BP 123/55
[2020-05-11] MEDS: FAMOTIDINE 20MG TABLET PO SCH (20:58)
[2020-05-11] MEDS: ATORVASTATIN CALCIUM 40MG TABLET PO SCH (20:59)
[2020-05-11] MEDS: ZOLPIDEM TARTRATE 5MG TABLET PO PRN (20:59)
[2020-05-12] MEDS: FUROSEMIDE 40MG TABLET PO SCH ×2 (06:45→17:39)
[2020-05-12] MEDS: TRAMADOL 50MG TABLET PO PRN (06:46)
[2020-05-12 07:09] LABS: BASOPHILS % 0.7 % (0.0-2.0); EOSINOPHILS % 0.9 % (0.0-5.0); HEMATOCRIT. 26.1 % (36.0-48.0); HEMOGLOBIN. 8.1 g/dL (12.0-16.0); LYMPHOCYTES % 14.2 % (20.0-50.0); MEAN CORPUSCULAR VOLUME 74.1 fL (81.0-99.0); MONOCYTES % 6.4 % (2.0-8.0); NEUTROPHILS % 77.8 % (40.0-76.0); RED BLOOD CELL COUNT 3.52 mill/uL (4.2-5.4); RED CELL DISTRIBUTION WIDTH 18.8 % (11.6-14.6)
[2020-05-12 07:14] LABS: CHLORIDE 101 mEq/L (98-107)
[2020-05-12 08:12] VITALS: BP 133/75
[2020-05-12 09:06] LABS: G6PD RBC 3.47 x10E6/uL (3.77-5.28)
[2020-05-12] MEDS: HYDROXYCHLOROQUINE SULFATE 200MG TABLET PO SCH ×2 (09:35→17:39)
[2020-05-12] MEDS: CELECOXIB 200MG CAPSULE PO SCH ×2 (09:35→17:39)
[2020-05-12] MEDS: DOCUSATE SODIUM 100MG CAPSULE PO SCH ×2 (09:36→17:39)
[2020-05-12] MEDS: LISINOPRIL 20MG TABLET PO SCH (09:36)
[2020-05-12] MEDS: FOLIC ACID 1MG TABLET PO SCH (09:36)
[2020-05-12] MEDS: CARVEDILOL 3.125 MG TABLET PO SCH ×2 (09:37→21:07)
[2020-05-12] MEDS: CYANOCOBALAMIN 1000MCG/ML VIAL IM SCH (09:37)
[2020-05-12] MEDS: PREDNISONE 10MG TABLET PO SCH (09:38)
[2020-05-12] MEDS: BUDESONIDE 0.5MG/2ML NEB HHN SCH ×2 (11:46→22:10)
[2020-05-12] MEDS: IPRATROPIUM/ALBUTEROL 0.5-3(2.5)MG/3ML NEB HHN SCH ×3 (11:46→22:10)
[2020-05-12 12:14] LABS: PLATELET 276 x1000/uL (130-400)
[2020-05-12] MEDS: FERROUS SULFATE 325MG TABLET PO SCH (17:39)
[2020-05-12 20:00] VITALS: BP 124/66
[2020-05-12] MEDS: FAMOTIDINE 20MG TABLET PO SCH (21:07)
[2020-05-12] MEDS: ASCORBIC ACID 500 MG TABLET PO SCH (21:07)
[2020-05-12] MEDS: ATORVASTATIN CALCIUM 40MG TABLET PO SCH (21:08)
[2020-05-12] MEDS: ZOLPIDEM TARTRATE 5MG TABLET PO PRN (21:11)
[2020-05-13] MEDS: TRAMADOL 50MG TABLET PO PRN ×2 (05:39→22:15)
[2020-05-13 06:14] LABS: BASOPHILS % 1.2 % (0.0-2.0); EOSINOPHILS % 1.7 % (0.0-5.0); HEMATOCRIT. 27.1 % (36.0-48.0); HEMOGLOBIN. 8.3 g/dL (12.0-16.0); LYMPHOCYTES % 15.7 % (20.0-50.0); MEAN CORPUSCULAR HEMOGLOBIN 22.9 pg (28.0-32.0); MEAN CORPUSCULAR VOLUME 74.4 fL (81.0-99.0); MEAN PLATELET VOLUME 8.4 fl (7.4-10.4); MONOCYTES % 7.8 % (2.0-8.0); NEUTROPHILS % 73.6 % (40.0-76.0); PLATELET 364 x1000/uL (130-400); RED BLOOD CELL COUNT 3.64 mill/uL (4.2-5.4); RED CELL DISTRIBUTION WIDTH 18.8 % (11.6-14.6)
[2020-05-13 06:30] LABS: CHLORIDE 101 mEq/L (98-107)
[2020-05-13] MEDS: FUROSEMIDE 40MG TABLET PO SCH ×2 (06:41→16:34)
[2020-05-13 08:09] VITALS: BP 124/69
[2020-05-13] MEDS: CARVEDILOL 3.125 MG TABLET PO SCH ×2 (08:11→21:29)
[2020-05-13] MEDS: DOCUSATE SODIUM 100MG CAPSULE PO SCH ×2 (08:11→16:34)
[2020-05-13] MEDS: CYANOCOBALAMIN 1000MCG/ML VIAL IM SCH (08:11)
[2020-05-13] MEDS: FOLIC ACID 1MG TABLET PO SCH (08:12)
[2020-05-13] MEDS: FERROUS SULFATE 325MG TABLET PO SCH ×3 (08:12→16:34)
[2020-05-13] MEDS: CELECOXIB 200MG CAPSULE PO SCH ×2 (08:12→16:34)
[2020-05-13] MEDS: LISINOPRIL 20MG TABLET PO SCH (08:12)
[2020-05-13] MEDS: ASCORBIC ACID 500 MG TABLET PO SCH ×2 (08:12→21:27)
[2020-05-13] MEDS: HYDROXYCHLOROQUINE SULFATE 200MG TABLET PO SCH ×2 (08:12→16:34)
[2020-05-13] MEDS: PREDNISONE 10MG TABLET PO SCH (08:13)
[2020-05-13] MEDS ORDERED: METHOTREXATE SODIUM 2 . 5MG TABLET PO SCH (09:00)
[2020-05-13] MEDS: IPRATROPIUM/ALBUTEROL 0.5-3(2.5)MG/3ML NEB HHN SCH ×3 (09:00→20:51)
[2020-05-13] MEDS: BUDESONIDE 0.5MG/2ML NEB HHN SCH (11:53)
[2020-05-13 15:06] LABS: G6PD QUANTITATIVE 161 (127-427)
[2020-05-13 20:00] VITALS: BP 128/71
[2020-05-13] MEDS: ATORVASTATIN CALCIUM 40MG TABLET PO SCH (21:27)
[2020-05-13] MEDS: FAMOTIDINE 20MG TABLET PO SCH (21:27)
[2020-05-13] MEDS ORDERED: ZOLPIDEM TARTRATE 5MG TABLET PO PRN (23:15)
[2020-05-14] MEDS: FUROSEMIDE 40MG TABLET PO SCH ×2 (06:23→17:03)
[2020-05-14] MEDS: TRAMADOL 50MG TABLET PO PRN (06:23)
[2020-05-14 07:10] LABS: ANA IFA Negative (.)
[2020-05-14 08:00] VITALS: BP 147/66
[2020-05-14] MEDS: PREDNISONE 10MG TABLET PO SCH (08:08)
[2020-05-14] MEDS: HYDROXYCHLOROQUINE SULFATE 200MG TABLET PO SCH ×2 (08:08→17:03)
[2020-05-14] MEDS: ASCORBIC ACID 500 MG TABLET PO SCH ×2 (08:08→21:04)
[2020-05-14] MEDS: FOLIC ACID 1MG TABLET PO SCH (08:08)
[2020-05-14] MEDS: CELECOXIB 200MG CAPSULE PO SCH ×2 (08:09→17:02)
[2020-05-14] MEDS: CYANOCOBALAMIN 1000MCG/ML VIAL IM SCH (08:09)
[2020-05-14] MEDS: FERROUS SULFATE 325MG TABLET PO SCH ×3 (08:09→17:03)
[2020-05-14] MEDS: LISINOPRIL 20MG TABLET PO SCH (08:09)
[2020-05-14] MEDS: CARVEDILOL 3.125 MG TABLET PO SCH ×2 (08:09→21:05)
[2020-05-14] MEDS: DOCUSATE SODIUM 100MG CAPSULE PO SCH ×2 (08:10→17:03)
[2020-05-14] MEDS: IPRATROPIUM/ALBUTEROL 0.5-3(2.5)MG/3ML NEB HHN SCH ×4 (08:52→20:41)
[2020-05-14 20:00] VITALS: BP 138/68
[2020-05-14] MEDS ORDERED: GABAPENTIN 100MG CAPSULE PO SCH (21:00)
[2020-05-14] MEDS: FAMOTIDINE 20MG TABLET PO SCH (21:04)
[2020-05-14] MEDS: ATORVASTATIN CALCIUM 40MG TABLET PO SCH (21:04)
[2020-05-15] MEDS: FUROSEMIDE 40MG TABLET PO SCH ×2 (06:31→17:48)
[2020-05-15 06:57] LABS: HEMATOCRIT 27.6 % (36.0-48.0); HEMOGLOBIN 8.5 g/dL (12.0-16.0); MEAN CORPUSCULAR HEMOGLOBIN 23.2 pg (28.0-32.0); MEAN CORPUSCULAR VOLUME 74.9 fL (81.0-99.0); PLATELET 344 x1000/uL (130-400); RED BLOOD CELL COUNT 3.68 mill/uL (4.2-5.4); RED CELL DISTRIBUTION WIDTH 18.9 % (11.6-14.6)
[2020-05-15 07:13] LABS: CHLORIDE 102 mEq/L (98-107)
[2020-05-15 08:00] VITALS: BP 125/61
[2020-05-15] MEDS: IPRATROPIUM/ALBUTEROL 0.5-3(2.5)MG/3ML NEB HHN SCH ×4 (08:34→22:03)
[2020-05-15] MEDS: LISINOPRIL 20MG TABLET PO SCH (08:37)
[2020-05-15] MEDS: ASCORBIC ACID 500 MG TABLET PO SCH ×2 (08:37→20:21)
[2020-05-15] MEDS: HYDROXYCHLOROQUINE SULFATE 200MG TABLET PO SCH ×2 (08:37→17:48)
[2020-05-15] MEDS: FOLIC ACID 1MG TABLET PO SCH (08:38)
[2020-05-15] MEDS: CARVEDILOL 3.125 MG TABLET PO SCH ×2 (08:38→20:21)
[2020-05-15] MEDS: FERROUS SULFATE 325MG TABLET PO SCH ×3 (08:38→17:48)
[2020-05-15] MEDS: CELECOXIB 200MG CAPSULE PO SCH ×2 (08:38→17:48)
[2020-05-15] MEDS: PREDNISONE 10MG TABLET PO SCH (08:38)
[2020-05-15] MEDS: DOCUSATE SODIUM 100MG CAPSULE PO SCH ×2 (08:38→17:48)
[2020-05-15] MEDS: TRAMADOL 50MG TABLET PO PRN ×2 (08:49→17:53)
[2020-05-15] MEDS ORDERED: POTASSIUM CHLORIDE 20MEQ TABLET SR PO SCH (09:00)
[2020-05-15] MEDS ORDERED: POTA-79 MT (11:15)
[2020-05-15] MEDS ORDERED: FERR325T23 PO (11:15)
[2020-05-15] MEDS ORDERED: HYDR200T35 PO (11:15)
[2020-05-15] MEDS ORDERED: ALBU18HF2 IH (11:15)
[2020-05-15] MEDS ORDERED: LIP40 PO (11:15)
[2020-05-15] MEDS ORDERED: FLUT1DIS3 INH (11:15)
[2020-05-15] MEDS ORDERED: PRED10TA PO (11:15)
[2020-05-15] MEDS ORDERED: FURO40TA5 PO (11:15)
[2020-05-15] MEDS ORDERED: DOCU-150 PO (11:15)
[2020-05-15] MEDS ORDERED: CELE200C PO (11:15)
[2020-05-15] MEDS ORDERED: LISI-604 PO (11:15)
[2020-05-15] MEDS ORDERED: HYDR-4001 MT (11:26)
[2020-05-15 14:11] LABS: 25-HYDROXY VITAMIN D3 24 ng/mL (.)
[2020-05-15 15:26] LABS: BG BASE EXCESS 7.9 mmol/L (-2.0-2.0); BG CARBOXYHEMOGLOBIN 0.2 % (0.5-1.5); BG DEOXYHEMOGLOBIN 4.4 % (0.0-5.0); BG FRACTION INSPIRED OXYGEN 24; BG HCO3 ACT 33.4 mmol/L (22.0-26.0); BG METHEMOGLOBIN 0.4 % (0.0-1.5); BG OXYGEN SATURATION 95.6 % (92.0-98.5); BG PCO2 52.2 mmHg (35.0-45.0); BG PH 7.424 (7.350-7.450); BG SAMPLE SITE LEFT RADIAL; BG TOTAL HEMOGLOBIN 9.8 g/dL (12.0-18.0); BG VENT MODE NASAL CANNULA
[2020-05-15 20:00] VITALS: BP 125/61
[2020-05-15] MEDS: ATORVASTATIN CALCIUM 40MG TABLET PO SCH (20:20)
[2020-05-15] MEDS: FAMOTIDINE 20MG TABLET PO SCH (20:21)
[2020-05-15] MEDS ORDERED: GABAPENTIN 300MG CAPSULE PO SCH (21:00)
[2020-05-16] MEDS: FUROSEMIDE 40MG TABLET PO SCH (06:31)
[2020-05-16 08:05] VITALS: BP 123/60
[2020-05-16 08:30] LABS: CHLORIDE 104 mEq/L (98-107)
[2020-05-16] MEDS: DOCUSATE SODIUM 100MG CAPSULE PO SCH (08:59)
[2020-05-16] MEDS: FOLIC ACID 1MG TABLET PO SCH (08:59)
[2020-05-16] MEDS: FERROUS SULFATE 325MG TABLET PO SCH ×2 (08:59→13:49)
[2020-05-16] MEDS: ASCORBIC ACID 500 MG TABLET PO SCH (08:59)
[2020-05-16] MEDS: CELECOXIB 200MG CAPSULE PO SCH (08:59)
[2020-05-16] MEDS: HYDROXYCHLOROQUINE SULFATE 200MG TABLET PO SCH (08:59)
[2020-05-16] MEDS: LISINOPRIL 20MG TABLET PO SCH (09:00)
[2020-05-16] MEDS: CARVEDILOL 3.125 MG TABLET PO SCH (09:00)
[2020-05-16] MEDS: PREDNISONE 10MG TABLET PO SCH (09:00)
[2020-05-16] MEDS: IPRATROPIUM/ALBUTEROL 0.5-3(2.5)MG/3ML NEB HHN SCH ×2 (09:45→13:40)
[2020-05-16 11:44] VITALS: BP 126/62
[2020-05-16] MEDS ORDERED: ERGOCALCIFEROL 50000UNITS CAPSULE PO SCH (18:00)
[2020-05-17] MEDS ORDERED: LIDOCAINE 5% PATCH TOP SCH (09:00)
== END 2020-05-16 15:10 | disposition home health service (06) | DRG 947 ==
PROVIDERS: ADMIT Physical Medicine & Rehabilitation Spinal Cord Injury Medicine; ATTEND Internal Medicine
DX: R53.81 Other malaise (principal); E43 Unspecified severe protein-calorie malnutrition; I50.33 Acute on chronic diastolic (congestive) heart failure; I11.0 Hypertensive heart disease with heart failure; E11.9 Type 2 diabetes mellitus without complications; E66.9 Obesity, unspecified; E78.5 Hyperlipidemia, unspecified; Z72.0 Tobacco use; J44.9 Chronic obstructive pulmonary disease, unspecified; Z68.36 Body mass index [BMI] 36.0-36.9, adult
CPT/HCPCS: 36415; 36600; 71045; 71046; 74176; 80048; 80053; 81003; 82306; 82375; 82607; 82728; 82746; 82805; 82955; 82962; 83036; 83540; 83550; 83735; 84100; 84134; 84443; 85025; 85027; 85041; 86256; 90585; 92523; 94640; 97110; 97116; 97162; 97166; 97530; 97535; A6261; J3420; J7512; J7626; J8610

== ENCOUNTER 2021-07-14 21:27 | Inpatient (IN) | payer BC, MEDICAID ==
[~2021-07-14] VITALS: Ht 170.2 cm; Wt 69.0 kg
[~2021-07-14 21:27] MED LIST changes: -ALBU6.7H11 INH; +ALBU6.7H15 INH; +ATEN50TA MT; -BENZ-16 MT; +CELE200C PO; +DOCU-150 PO; +FERR325T23 PO; +FURO-151 MT; +FURO40TA5 PO; -GUAI600T26 MT; +HYDR-4001 MT; +HYDR200T35 PO; +LIP40 PO; +LISI20TA31 PO; +POTA-79 MT; +PRED10TA PO; -TAM75 MT
[2021-07-15 03:06] LABS: EOSINOPHILS % 3.3 % (0.0-5.0); HEMATOCRIT. 33.8 % (36.0-48.0); HEMOGLOBIN. 10.4 g/dL (12.0-16.0); MEAN CORPUSCULAR HEMOGLOBIN 23.1 pg (28.0-32.0); MEAN CORPUSCULAR VOLUME 75.3 fL (81.0-99.0); MEAN PLATELET VOLUME 8.7 fl (7.4-10.4); MONOCYTES % 8.1 % (2.0-8.0); NEUTROPHILS % 74.6 % (40.0-76.0); PLATELET 295 x1000/uL (130-400); RED BLOOD CELL COUNT 4.49 mill/uL (4.2-5.4); RED CELL DISTRIBUTION WIDTH 14.7 % (11.6-14.6)
[2021-07-15 03:16] LABS: CHLORIDE 98 mEq/L (98-107)
[2021-07-15] MEDS ORDERED: FUROSEMIDE 40MG/4ML VIAL IV ONE (04:00)
[2021-07-15] MEDS ORDERED: ASPIRIN 81MG TABLET PO ONE (04:00)
[2021-07-15] MEDS ORDERED: FUROSEMIDE 40MG/4ML VIAL IVP SCH (09:40)
[2021-07-15 14:45] VITALS: BP 155/91
[2021-07-15 16:00] VITALS: BP 154/88
[2021-07-15] MEDS: FUROSEMIDE 40MG/4ML VIAL IVP SCH (17:38)
[2021-07-15 18:00] VITALS: BP 144/75
[2021-07-15 20:00] VITALS: BP 160/100
[2021-07-15] MEDS ORDERED: HYDROCODONE/ACETAMINOPHEN 5/325MG TABLET PO PRN (21:30)
[2021-07-15] MEDS ORDERED: NALOXONE HCL 0.4 MG/ML 1ML VIAL IV PRN (21:45)
[2021-07-15 22:00] VITALS: BP 145/86
[2021-07-16] VITALS (9 sets, daily range): BP systolic 102–143; BP diastolic 58–89
[2021-07-16] MEDS: ZOLPIDEM TARTRATE 5MG TABLET PO PRN ×2 (00:18→21:23)
[2021-07-16] MEDS: ACETAMINOPHEN 325MG TABLET PO PRN ×2 (05:25→17:17)
[2021-07-16] MEDS: ONDANSETRON HCL 4MG/2ML INJ IV PRN ×2 (05:25→19:54)
[2021-07-16 05:41] LABS: *AMPHETAMINES SCREEN URINE NEGATIVE (NEGATIVE); *BARBITURATES SCREEN URINE NEGATIVE (NEGATIVE)
[2021-07-16 05:42] LABS: *BENZODIAZEPINES SCREEN URINE NEGATIVE (NEGATIVE); *COCAINE SCREEN URINE NEGATIVE (NEGATIVE); CANNABINOID URINE SCREEN NEGATIVE (NEGATIVE); METHADONE URINE SCREEN NEGATIVE (NEGATIVE); OPIATES URINE SCREEN NEGATIVE (NEGATIVE); PHENCYCLIDINE URINE SCREEN NEGATIVE (NEGATIVE)
[2021-07-16 07:11] LABS: CHLORIDE 100 mEq/L (98-107)
[2021-07-16] MEDS: BUDESONIDE 0.5MG/2ML NEB HHN SCH ×2 (08:01→20:13)
[2021-07-16] MEDS: IPRATROPIUM/ALBUTEROL 0.5-3(2.5)MG/3ML NEB HHN SCH ×3 (08:01→20:12)
[2021-07-16] MEDS: PREDNISONE 10MG TABLET PO SCH ×2 (09:00→09:11)
[2021-07-16] MEDS: FUROSEMIDE 40MG/4ML VIAL IVP SCH ×2 (09:11→17:17)
[2021-07-16] MEDS: AMLODIPINE 10MG TABLET PO SCH (09:11)
[2021-07-16] MEDS: ATORVASTATIN CALCIUM 40MG TABLET PO SCH (17:17)
[2021-07-16 17:34] LABS: BG BASE EXCESS 12.9 mmol/L (-2.0-2.0); BG DEOXYHEMOGLOBIN 10.7 % (0.0-5.0); BG FRACTION INSPIRED OXYGEN 36; BG HCO3 ACT 39.6 mmol/L (22.0-26.0); BG METHEMOGLOBIN 0.3 % (0.0-1.5); BG OXYGEN SATURATION 89.2 % (92.0-98.5); BG PCO2 62.1 mmHg (35.0-45.0); BG PH 7.422 (7.350-7.450); BG SAMPLE SITE RIGHT RADIAL; BG TOTAL HEMOGLOBIN 11.3 g/dL (12.0-18.0); BG VENT MODE NASAL CANNULA
[2021-07-17] VITALS (9 sets, daily range): BP systolic 101–140; BP diastolic 52–79
[2021-07-17] MEDS: ACETAMINOPHEN 325MG TABLET PO PRN (03:32)
[2021-07-17] MEDS: ONDANSETRON HCL 4MG/2ML INJ IV PRN (07:15)
[2021-07-17] MEDS: AMLODIPINE 10MG TABLET PO SCH (08:09)
[2021-07-17] MEDS: FUROSEMIDE 40MG/4ML VIAL IVP SCH ×2 (08:09→16:16)
[2021-07-17] MEDS: IPRATROPIUM/ALBUTEROL 0.5-3(2.5)MG/3ML NEB HHN SCH ×3 (08:10→20:47)
[2021-07-17] MEDS: BUDESONIDE 0.5MG/2ML NEB HHN SCH ×2 (08:12→20:49)
[2021-07-17] MEDS ORDERED: TRAMADOL 50MG TABLET PO PRN (12:15)
[2021-07-17] MEDS: ENOXAPARIN 40MG/0.4ML SYR SUBCUT SCH (12:30)
[2021-07-17] MEDS: ATORVASTATIN CALCIUM 40MG TABLET PO SCH (16:50)
[2021-07-18] VITALS (7 sets, daily range): BP systolic 105–116; BP diastolic 56–82
[2021-07-18] MEDS: FUROSEMIDE 40MG/4ML VIAL IVP SCH ×2 (07:24→16:18)
[2021-07-18] MEDS: AMLODIPINE 10MG TABLET PO SCH (08:38)
[2021-07-18] MEDS: BUDESONIDE 0.5MG/2ML NEB HHN SCH ×2 (08:48→21:36)
[2021-07-18] MEDS: IPRATROPIUM/ALBUTEROL 0.5-3(2.5)MG/3ML NEB HHN SCH ×3 (08:48→21:36)
[2021-07-18] MEDS: ENOXAPARIN 40MG/0.4ML SYR SUBCUT SCH (11:20)
[2021-07-18] MEDS: GABAPENTIN 300MG CAPSULE PO SCH (16:23)
[2021-07-18] MEDS: ATORVASTATIN CALCIUM 40MG TABLET PO SCH (16:23)
[2021-07-19] VITALS (8 sets, daily range): BP systolic 93–123; BP diastolic 53–77
[2021-07-19] MEDS: IPRATROPIUM/ALBUTEROL 0.5-3(2.5)MG/3ML NEB HHN SCH ×3 (03:38→15:22)
[2021-07-19] MEDS: FUROSEMIDE 40MG/4ML VIAL IVP SCH ×2 (07:16→16:42)
[2021-07-19] MEDS: GABAPENTIN 300MG CAPSULE PO SCH (08:17)
[2021-07-19] MEDS: AMLODIPINE 10MG TABLET PO SCH (08:18)
[2021-07-19] MEDS: ENOXAPARIN 40MG/0.4ML SYR SUBCUT SCH (11:06)
[2021-07-19] MEDS: ATORVASTATIN CALCIUM 40MG TABLET PO SCH (16:42)
[2021-07-20] VITALS (8 sets, daily range): BP systolic 80–109; BP diastolic 39–70
[2021-07-20] MEDS: IPRATROPIUM/ALBUTEROL 0.5-3(2.5)MG/3ML NEB HHN PRN ×2 (06:16→18:25)
[2021-07-20] MEDS: FUROSEMIDE 40MG/4ML VIAL IVP SCH ×3 (07:21→17:06)
[2021-07-20] MEDS: AMLODIPINE 10MG TABLET PO SCH (08:16)
[2021-07-20] MEDS: GABAPENTIN 300MG CAPSULE PO SCH (08:16)
[2021-07-20] MEDS: ENOXAPARIN 40MG/0.4ML SYR SUBCUT SCH (12:33)
[2021-07-20] MEDS: ATORVASTATIN CALCIUM 40MG TABLET PO SCH (17:06)
[2021-07-21] VITALS: BP 91/43
[2021-07-21 04:00] VITALS: BP 123/53
[2021-07-21 05:45] LABS: CHLORIDE 95 mEq/L (98-107)
[2021-07-21 07:05] LABS: BASOPHILS % 0.8 % (0.0-2.0); EOSINOPHILS % 2.8 % (0.0-5.0); HEMATOCRIT. 32.9 % (36.0-48.0); HEMOGLOBIN. 10.1 g/dL (12.0-16.0); LYMPHOCYTES % 14.9 % (20.0-50.0); MEAN CORPUSCULAR HEMOGLOBIN 22.8 pg (28.0-32.0); MEAN CORPUSCULAR VOLUME 74.4 fL (81.0-99.0); MEAN PLATELET VOLUME 8.8 fl (7.4-10.4); MONOCYTES % 10.2 % (2.0-8.0); NEUTROPHILS % 71.3 % (40.0-76.0); PLATELET 329 x1000/uL (130-400); RED BLOOD CELL COUNT 4.43 mill/uL (4.2-5.4); RED CELL DISTRIBUTION WIDTH 14.3 % (11.6-14.6)
[2021-07-21] MEDS: BUDESONIDE 0.5MG/2ML NEB HHN SCH ×2 (07:58→20:48)
[2021-07-21] MEDS: IPRATROPIUM/ALBUTEROL 0.5-3(2.5)MG/3ML NEB HHN SCH ×3 (07:58→20:48)
[2021-07-21 08:01] VITALS: BP 116/73
[2021-07-21] MEDS: FUROSEMIDE 40MG/4ML VIAL IVP SCH ×2 (08:20→17:20)
[2021-07-21] MEDS: GABAPENTIN 300MG CAPSULE PO SCH (08:21)
[2021-07-21] MEDS: AMLODIPINE 10MG TABLET PO SCH (08:21)
[2021-07-21 12:00] VITALS: BP 126/80
[2021-07-21] MEDS: ENOXAPARIN 40MG/0.4ML SYR SUBCUT SCH (12:31)
[2021-07-21] MEDS: DIPHENHYDRAMINE 25MG CAPSULE PO PRN (12:31)
[2021-07-21 16:01] VITALS: BP 113/75
[2021-07-21] MEDS: ATORVASTATIN CALCIUM 40MG TABLET PO SCH (17:20)
[2021-07-21 20:00] VITALS: BP 107/64
[2021-07-22] VITALS: BP 100/60
[2021-07-22] MEDS: IPRATROPIUM/ALBUTEROL 0.5-3(2.5)MG/3ML NEB HHN SCH ×4 (00:33→20:51)
[2021-07-22 04:00] VITALS: BP 108/64
[2021-07-22] MEDS: IPRATROPIUM/ALBUTEROL 0.5-3(2.5)MG/3ML NEB HHN PRN (04:44)
[2021-07-22 08:00] VITALS: BP 109/67
[2021-07-22] MEDS: BUDESONIDE 0.5MG/2ML NEB HHN SCH ×2 (08:21→20:51)
[2021-07-22] MEDS: GABAPENTIN 300MG CAPSULE PO SCH (09:33)
[2021-07-22] MEDS: AMLODIPINE 10MG TABLET PO SCH (09:34)
[2021-07-22] MEDS: FUROSEMIDE 40MG/4ML VIAL IVP SCH ×2 (09:34→17:35)
[2021-07-22 12:00] VITALS: BP 124/64
[2021-07-22] MEDS: ENOXAPARIN 40MG/0.4ML SYR SUBCUT SCH (12:59)
[2021-07-22] MEDS: ACETAMINOPHEN 325MG TABLET PO PRN (15:38)
[2021-07-22] MEDS: ATORVASTATIN CALCIUM 40MG TABLET PO SCH (17:35)
[2021-07-22 20:00] VITALS: BP 109/66
[2021-07-23] VITALS: BP 102/57
[2021-07-23] MEDS: IPRATROPIUM/ALBUTEROL 0.5-3(2.5)MG/3ML NEB HHN SCH ×3 (01:08→13:53)
[2021-07-23 04:00] VITALS: BP 103/59
[2021-07-23] MEDS: FUROSEMIDE 40MG/4ML VIAL IVP SCH (07:15)
[2021-07-23 08:00] VITALS: BP 131/57
[2021-07-23] MEDS: BUDESONIDE 0.5MG/2ML NEB HHN SCH (08:45)
[2021-07-23] MEDS: GABAPENTIN 300MG CAPSULE PO SCH (09:49)
[2021-07-23] MEDS: AMLODIPINE 10MG TABLET PO SCH (09:49)
[2021-07-23] MEDS: DIPHENHYDRAMINE 25MG CAPSULE PO PRN (10:55)
[2021-07-23] MEDS: ENOXAPARIN 40MG/0.4ML SYR SUBCUT SCH (11:30)
[2021-07-23 12:00] VITALS: BP 93/46
[2021-07-23 14:49] VITALS: BP 103/59
== END 2021-07-23 20:06 | disposition home or self-care (01) | DRG 291 ==
LOC: ER 21:27 → 5EST 07-15 04:42 → EDBEDREQ 07-15 04:55 → ENRESERV 07-15 11:55
PROVIDERS: ADMIT Internal Medicine; ATTEND Internal Medicine
DX: I11.0 Hypertensive heart disease with heart failure (principal); J96.21 Acute and chronic respiratory failure with hypoxia; I50.33 Acute on chronic diastolic (congestive) heart failure; J44.1 Chronic obstructive pulmonary disease with (acute) exacerbation; E44.0 Moderate protein-calorie malnutrition; D50.9 Iron deficiency anemia, unspecified; D53.9 Nutritional anemia, unspecified; E11.9 Type 2 diabetes mellitus without complications; E78.5 Hyperlipidemia, unspecified; E78.00 Pure hypercholesterolemia, unspecified; Z20.822 Contact with and (suspected) exposure to COVID-19; F14.90 Cocaine use, unspecified, uncomplicated; Z82.49 Family history of ischemic heart disease and other diseases of the circulatory system; Z83.3 Family history of diabetes mellitus; Z68.32 Body mass index [BMI] 32.0-32.9, adult; Z99.81 Dependence on supplemental oxygen
CPT/HCPCS: 36415; 36600; 71045; 80048; 80053; 80305; 82375; 82805; 82962; 83880; 84484; 85025; 87426; 93005; 93306; 94640; 97161; 97166; 99285; J1650; J1940; J2405; J7512; J7626; Q0163

== ENCOUNTER 2021-10-07 12:10 | Emergency (ER) | payer MEDICARE, MEDICAID ==
[~2021-10-07] VITALS: Ht 167.6 cm; Wt 65.0 kg
[2021-10-07 13:21] LABS: BASOPHILS % 0.8 % (0.0-2.0); EOSINOPHILS % 2.5 % (0.0-5.0); HEMOGLOBIN. 9.3 g/dL (12.0-16.0); LYMPHOCYTES % 13.3 % (20.0-50.0); MEAN CORPUSCULAR HEMOGLOBIN 22.2 pg (28.0-32.0); MEAN CORPUSCULAR VOLUME 74.1 fL (81.0-99.0); MEAN PLATELET VOLUME 8.7 fl (7.4-10.4); MONOCYTES % 6.1 % (2.0-8.0); NEUTROPHILS % 77.3 % (40.0-76.0); PLATELET 286 x1000/uL (130-400); RED BLOOD CELL COUNT 4.19 mill/uL (4.2-5.4); RED CELL DISTRIBUTION WIDTH 15.4 % (11.6-14.6)
[2021-10-07 13:35] LABS: CHLORIDE 110 mEq/L (98-107)
[2021-10-07] MEDS: ALBUTEROL (0.083%) 2.5MG/3ML NEB HHN SCH ×3 (13:59→15:12)
[2021-10-07] MEDS ORDERED: ACETAMINOPHEN 325MG TABLET PO ONE (15:15)
[2021-10-07 17:44] VITALS: BP 119/59
== END 2021-10-07 18:14 | disposition home or self-care (01) ==
LOC: ER 12:32
DX: R07.89 Other chest pain (principal); I11.0 Hypertensive heart disease with heart failure; I50.9 Heart failure, unspecified; E11.9 Type 2 diabetes mellitus without complications; E78.00 Pure hypercholesterolemia, unspecified; Z79.899 Other long term (current) drug therapy
CPT/HCPCS: 36415; 71045; 80053; 83880; 84484; 85025; 93005; 94640; 99285